=== PATIENT | female | born 1985 | race Caucasian/White ===

== ENCOUNTER 2021-05-01 11:59 | Emergency (ER) | payer MEDICAID ==
[~2021-05-01] VITALS: Ht 162.6 cm; Wt 81.8 kg
[2021-05-01] MEDS ORDERED: normal saline 1000ML IV soln IV ONE (12:10)
[2021-05-01] MEDS ORDERED: acetaminophen 325mg tablet PO STA (12:10)
[2021-05-01 12:42] LABS: BASOPHILS % (AUTO) 0.4 % (0-1); EOSINOPHILS % (AUTO) 0.7 % (0-6); HEMATOCRIT 39.1 % (35.0-45.0); HEMOGLOBIN 13.4 g/dl (12.0-16.0); LYMPHOCYTES # (AUTO) 0.7 X10'3 (1.1-4.8); LYMPHOCYTES % (AUTO) 11.2 % (21-51); MEAN CORPUSCULAR HEMOGLOBIN 31.1 PG (27.0-31.0); MEAN CORPUSCULAR HGB CONC 34.3 g/dL (33.0-36.5); MEAN CORPUSCULAR VOLUME 90.8 FL (78-98); MEAN PLATELET VOLUME 7.5 FL (7.4-10.4); MONOCYTES # (AUTO) 0.6 X10'3 (0-0.9); MONOCYTES % (AUTO) 10.3 % (2-12); NEUTROPHILS # (AUTO) 4.6 X10'3 (1.8-7.7); NEUTROPHILS % (AUTO) 77.4 % (42-75); PLATELET COUNT 310 X10'3 (140-440); WHITE BLOOD COUNT 5.9 X10'3 (4.5-11.0)
[2021-05-01] MEDS ORDERED: dexamethasone sod phosphate 10mg/ml inj IV STA (12:48)
[2021-05-01 12:54] LABS: D-DIMER 1.99 MG/L FEU (0-0.50)
[2021-05-01 12:58] LABS: ALANINE AMINOTRANSFERASE 155 U/L (12-78); ALBUMIN 3.1 G/DL (3.4-5.0); ALBUMIN/GLOBULIN RATIO 0.7 (1.1-1.5); ALKALINE PHOSPHATASE 62 IU/L (46-116); ANION GAP 10 (8-16); ASPARTATE AMINO TRANSFERASE 96 U/L (10-37); BILIRUBIN,TOTAL 0.8 MG/DL (0.1-1.0); BLOOD UREA NITROGEN 8 MG/DL (7-18); C-REACTIVE PROTEIN 7.11 MG/DL (0.0-0.5); CALCIUM 7.8 MG/DL (8.5-10.1); CHLORIDE 103 MMOL/L (99-107); GLUCOSE 121 MG/DL (70-104); POTASSIUM 3.7 MMOL/L (3.5-5.1); SODIUM 140 MMOL/L (135-145); TOTAL CARBON DIOXIDE 27.4 MMOL/L (24-32); TOTAL PROTEIN 7.4 G/DL (6.4-8.2); eGFR 63 ML/MIN
[2021-05-01 16:08] LABS: HCG SERUM QL NEGATIVE
[2021-05-01 16:09] LABS: CLARITY,URINE CLOUDY (Clear); COLOR,URINE YELLOW (Yellow); GLUCOSE, URINE NEGATIVE (Neg); KETONES,URINE NEGATIVE (Neg); LEUKOCYTE ESTERASE ,URINE TRACE (Neg); NITRITES, URINE NEGATIVE (Neg); OCCULT BLOOD,URINE LARGE (Neg); PH,URINE 8.5 (4.8-8.0); PROTEIN,URINE TRACE mg/dl (Neg); UA COLLECTION TYPE NON-SPECIFIED; UROBILINOGEN,URINE 0.2 E.U/dL (0.2-1.0)
[2021-05-01 16:18] LABS: BACTERIA,URINE 3+ /HPF (Neg); SQUAMOUS EPITHELIAL CELL,UR MANY /LPF (FEW)
[2021-05-01 16:19] LABS: RBC,URINE 0-2 /HPF (0-2); WBC,URINE 0-4 /HPF (0-4)
[2021-05-01] MEDS ORDERED: iohexol 350MG/ML 100ml bottle IV ONE (16:19)
[2021-05-01 16:21] VITALS: BP 114/72
[2021-05-01] MEDS ORDERED: AZIT500T PO (17:45)
[2021-05-01] MEDS ORDERED: DEXA6TAB PO (17:45)
[2021-05-01] MEDS ORDERED: BUDE180A INH (17:45)
[2021-05-01] MEDS ORDERED: ALBU6.7H9 INH (17:45)
== END 2021-05-01 14:10 | disposition home or self-care (01) ==
LOC: ER 12:00
DX: U07.1 COVID-19 (principal); J12.82 Pneumonia due to coronavirus disease 2019; R51.9 Headache, unspecified; R11.2 Nausea with vomiting, unspecified; R05.9 Cough, unspecified; R10.84 Generalized abdominal pain; R06.02 Shortness of breath; Z88.8 Allergy status to other drugs, medicaments and biological substances; Z79.2 Long term (current) use of antibiotics; Z79.899 Other long term (current) drug therapy
CPT/HCPCS: 36415; 71045; 71275; 80053; 81001; 83605; 84145; 84703; 85025; 85379; 86140; 87040; 87635; 96361; 96374; 99285; C9803; J1100; J7030; Q9967

== ENCOUNTER 2021-05-05 12:08 | Emergency (ER) | payer MEDICAID ==
[~2021-05-05] VITALS: Ht 162.6 cm; Wt 81.8 kg
[~2021-05-05 12:08] MED LIST: ALBU6.7H9 INH; AZIT500T PO; BUDE180A INH; DEXA6TAB PO
[2021-05-05] MEDS ORDERED: normal saline 1000ml 1,000 ML IV ONE (12:40)
[2021-05-05] MEDS ORDERED: CASIRIVIMAB/IMDEVIMAB inject. 10 ML in normal saline 100ml IV soln 100 ML IV ONE (13:30)
[2021-05-05 13:40] LABS: BASOPHILS % (AUTO) 0.2 % (0-1); EOSINOPHILS # (AUTO) 0.1 X10'3 (0-0.9); EOSINOPHILS % (AUTO) 0.5 % (0-6); HEMATOCRIT 40.2 % (35.0-45.0); HEMOGLOBIN 13.7 g/dl (12.0-16.0); LYMPHOCYTES # (AUTO) 1.2 X10'3 (1.1-4.8); LYMPHOCYTES % (AUTO) 9.2 % (21-51); MEAN CORPUSCULAR HEMOGLOBIN 30.9 PG (27.0-31.0); MEAN CORPUSCULAR HGB CONC 34.1 g/dL (33.0-36.5); MEAN CORPUSCULAR VOLUME 90.6 FL (78-98); MEAN PLATELET VOLUME 7.3 FL (7.4-10.4); MONOCYTES # (AUTO) 1.3 X10'3 (0-0.9); MONOCYTES % (AUTO) 9.8 % (2-12); NEUTROPHILS # (AUTO) 10.4 X10'3 (1.8-7.7); NEUTROPHILS % (AUTO) 80.3 % (42-75); PLATELET COUNT 521 X10'3 (140-440); RED BLOOD COUNT 4.43 X10'6 (4.20-5.60); RED CELL DISTRIBUTION WIDTH 12.8 % (11.5-14.5)
[2021-05-05 13:55] LABS: ALANINE AMINOTRANSFERASE 246 U/L (12-78); ALBUMIN/GLOBULIN RATIO 0.7 (1.1-1.5); ALKALINE PHOSPHATASE 79 IU/L (46-116); ANION GAP 12 (8-16); ASPARTATE AMINO TRANSFERASE 91 U/L (10-37); BILIRUBIN,TOTAL 1.3 MG/DL (0.1-1.0); BLOOD UREA NITROGEN 9 MG/DL (7-18); BUN/CREATININE RATIO 9.4 (6.6-38.0); C-REACTIVE PROTEIN 8.58 MG/DL (0.0-0.5); CALCIUM 8.4 MG/DL (8.5-10.1); CHLORIDE 103 MMOL/L (99-107); CREATININE 0.96 MG/DL (0.40-0.90); GLUCOSE 109 MG/DL (70-104); LACTATE DEHYDROGENASE 420 U/L (81-234); POTASSIUM 4.4 MMOL/L (3.5-5.1); SODIUM 141 MMOL/L (135-145); TOTAL CARBON DIOXIDE 26.3 MMOL/L (24-32); TOTAL PROTEIN 7.3 G/DL (6.4-8.2); eGFR 66 ML/MIN
[2021-05-05 16:16] VITALS: BP 114/73
== END 2021-05-05 16:18 | disposition home or self-care (01) ==
LOC: ER 12:10
DX: U07.1 COVID-19 (principal); J12.82 Pneumonia due to coronavirus disease 2019
CPT/HCPCS: 36415; 71045; 80053; 83605; 83615; 84145; 85025; 86140; 87040; 96360; 99285; J7030; M0243; Q0244